=== PATIENT | male | born 1980 | race African-American/Black ===

== ENCOUNTER 2024-02-07 17:47 | Emergency (ER) | payer OTHER ==
[2024-02-07] MEDS: Acetaminophen/HYDROcodone 325-10 MG Tab PO STA (18:58)
== END 2024-02-07 20:16 | disposition home or self-care (01) ==
LOC: MW.ED 17:47
DX: M54.6 Pain in thoracic spine (principal); V89.2XXA Person injured in unspecified motor-vehicle accident, traffic, initial encounter
CPT/HCPCS: 72128; 99284; A9270; 99283

== ENCOUNTER 2025-01-09 12:23 | Emergency (ER) | payer BC, OTHER ==
[2025-01-09] MEDS: Diphtheria,Pertussis(Acell),Tetanus Vaccine 0.5 ML Syringe IM ONE (12:52)
== END 2025-01-09 16:35 | disposition home or self-care (01) ==
LOC: MW.ED 12:23
DX: S90.451A Superficial foreign body, right great toe, initial encounter (principal); Z23 Encounter for immunization; W45.8XXA Other foreign body or object entering through skin, initial encounter
CPT/HCPCS: 10120; 73660; 76881; 90471; 90715; 99284; J2003; 99283